=== PATIENT | male | born 1985 | race Caucasian/White ===

== ENCOUNTER 2019-09-01 19:00 | Emergency (ER) | payer OTHER ==
--- NOTE | 2019-09-01 19:29 | ERPHSYRPT ---
- History of Present Illness Time Seen by Provider: 09/01/19 19:20 Source: patient, family Exam Limitations: no limitations Patient Subjective Stated Complaint: pt states he has been sick for three days, states he is coughing , wheezing, running fever, vomiting and diarrhea for 2 days Triage Nursing Assessment: pt is alert and oriented, staes he has pain all over body rates pain as 3/10 Physician History: 33 y/o white male presents with 3 day h/o coughing wheezing, vomiting and diarrhea(both have subsided) and fever. last dose of tylenol was at 1530 today. he took ibuprofen this am. pt states he is "allergic" to saline solution and refuses. his "allergy" is it makes him violent. he is not allergic to tylenol. he has a mild cough today. Timing/Duration: day(s) (3) Fever Severity: moderate Fever Therapy [employer]: Ibuprofen, Acetaminophen Associated Symptoms: cough, headache, muscle aches, No abdominal pain, No chest pain, No nausea/vomiting Allergies/Adverse Reactions: acetaminophen [From Vicodin] Allergy (Verified 09/01/19 19:23) hydrocodone [From Vicodin] Allergy (Verified 09/01/19 19:23) sodium chloride for inhalation [From Saline] Allergy (Verified 09/01/19 19:23) Home Medications: Omeprazole 20 mg PO DAILY 09/01/19 [History] - Review of Systems Constitutional: Fever Eyes: No Symptoms Ears, Nose, & Throat: No Symptoms Respiratory: Cough (mild) Cardiac: No Symptoms Abdominal/Gastrointestinal: No Symptoms Genitourinary Symptoms: No Symptoms Musculoskeletal: Arthralgias, Myalgias Skin: No Symptoms Neurological: No Symptoms Psychological: No Symptoms Endocrine: No Symptoms Hematologic/Lymphatic: No Symptoms Immunological/Allergic: No Symptoms All Other Systems: Reviewed and Negative - Past Medical History Pertinent Past Medical History: No Neurological History: No Pertinent History ENT History: No Pertinent History Cardiac History: No Pertinent History Respiratory History: No Pertinent History Endocrine Medical History: No Pertinent History Musculoskeletal History: No Pertinent History GI Medical History: No Pertinent History History: No Pertinent History Psycho-Social History: No Pertinent History Male Reproductive Disorders: No Pertinent History - Past Surgical History Past Surgical History: No Neuro Surgical History: No Pertinent History Cardiac: No Pertinent History Respiratory: No Pertinent History Gastrointestinal: No Pertinent History Genitourinary: No Pertinent History Musculoskeletal: No Pertinent History Male Surgical History: No Pertinent History - Social History Smoking Status: Never smoker Exposure to second hand smoke: No Drug Use: none Patient Lives Alone: No - Nursing Vital Signs Nursing Vital Signs: Initial Vital Signs Temperature 100.3 F 09/01/19 19:13 Pulse Rate 100 H 09/01/19 19:13 Respiratory Rate 16 09/01/19 19:13 Blood Pressure 124/83 09/01/19 19:13 O2 Sat by Pulse Oximetry 98 09/01/19 19:13 Pain Scale Pain Intensity 2 - Physical Exam General Appearance: no apparent distress, alert, anxiety Eye Exam: PERRL/EOMI, eyes nml inspection ENT Exam: normal ENT inspection, TMs normal, pharynx normal Neck Exam: normal inspection, non-tender, supple, full range of motion, trachea midline Respiratory Exam: normal breath sounds, lungs clear, no respiratory distress, no accessory muscle use, decreased breath sounds, No chest non-tender, No respiratory distress Cardiovascular/Chest Exam: normal heart sounds, regular rate/rhythm, normal peripheral pulses, No murmur Gastrointestinal/Abdominal Exam: soft, non tender, no distention, no mass, no guarding, no ecchymosis Rectal Exam: not done Extremity Exam: non-tender, normal range of motion, normal inspection Neurologic Exam: alert, oriented x 3, cooperative, hat trimmer II-XII nml as tested Skin Exam: normal color, warm, dry Lymphatic: No adenopathy SpO2 Interpretation: normal SpO2: 98 O2 Delivery: Room Air Ordered Tests: Active Orders 24 hr Category Date Time Status Hide Trimmer STAT Care 09/01/19 19:36 Active Pulse Oximetry (ED) STAT Care 09/01/19 19:35 Active CHEST 1 VIEW (PORTABLE) Stat Exams 09/01/19 19:35 Taken BLOOD CULTURE Stat Lab 09/01/19 20:05 Received CBC W DIFF Stat Lab 09/01/19 20:05 Completed CMP Stat Lab 09/01/19 20:05 Completed Lactic Acid Stat Lab 09/01/19 19:35 Completed [place] Screen Stat Lab 09/01/19 20:10 Completed UA W/RFX UR CULTURE Stat Lab 09/01/19 Completed Medication Summary Discontinued Medications Generic Name Dose Route Start Last Admin Trade Name Freq PRN Reason Stop Dose Admin Acetaminophen 650 mg 09/01/19 19:39 09/01/19 19:47 Tylenol 325 Mg PO 09/01/19 19:40 650 mg STAT STA Administration Acetaminophen Confirm 09/01/19 19:42 Tylenol 325 Mg Administered 09/01/19 19:43 Dose 650 mg .ROUTE .STK-MED ONE Ibuprofen 600 mg 09/01/19 19:40 09/01/19 19:47 Motrin 600 Mg PO 09/01/19 19:41 600 mg STAT ONE Administration Ibuprofen Confirm 09/01/19 19:42 Motrin 600 Mg Administered 09/01/19 19:43 Dose 600 mg .ROUTE .STK-MED ONE Oseltamivir Phosphate 75 mg 09/01/19 21:28 Tamiflu 75mg Capsule PO 09/01/19 21:29 STAT ONE Lab/Rad Data: Laboratory Result Diagrams 09/01/19 20:05 09/01/19 20:05 Laboratory Results 09/01/19 09/01/19 09/01/19 Range/Units Unknown 20:10 20:05 WBC (4.0-10.5) K/mm3 RBC (4.1-5.6) M/mm3 Hgb (12.5-18.0) gm/dl Hct (42-50) % MCV (78-100) fl MCH (26-32) pg MCHC (32-36) g/dl RDW (11.5-14.0) % Plt Count (150-450) K/mm3 MPV (6-9.5) fl Gran % (36.0-66.0) % Eos # (Auto) (0-0.5) Absolute Lymphs (auto) (1.0-4.6) Absolute Monos (auto) (0.0-1.3) Lymphocytes % (24.0-44.0) % Monocytes % (0.0-12.0) % Eosinophils % (0.00-5.0) % Basophils % (0.0-0.4) % Absolute Granulocytes (1.4-6.9) Basophils # (0-0.4) Sodium (137-145) mmol/L Potassium (3.5-5.1) mmol/L Chloride (98-107) mmol/L Carbon Dioxide (22-30) mmol/L Anion Gap (5-15) MEQ/L BUN (9-20) mg/dL Creatinine (0.66-1.25) mg/dL Estimated GFR ML/MIN Glucose (74-106) mg/dL Lactic Acid (0.4-2.0) Calcium (8.4-10.2) mg/dL Total Bilirubin (0.2-1.3) mg/dL AST (17-59) U/L ALT (0-50) U/L Alkaline Phosphatase (38-126) U/L Serum Total Protein (6.3-8.2) g/dL Albumin (3.5-5.0) g/dL Urine Color YELLOW (YELLOW) Urine Appearance CLEAR (CLEAR) Urine pH 6.0 (5-6) Ur Specific [place] 1.011 (1.005-1.025) Urine Protein NEGATIVE (Negative) Urine Ketones NEGATIVE (NEGATIVE) Urine Blood SMALL (0-5) Adrian/ul Urine Nitrite NEGATIVE (NEGATIVE) Urine Bilirubin NEGATIVE (NEGATIVE) Urine Urobilinogen 2 (0-1) mg/dL Ur Leukocyte Esterase NEGATIVE (NEGATIVE) Urine WBC (Auto) NONE (0-5) /HPF Urine RBC (Auto) 3-5 (0-2) /HPF U Epithel Cells (Auto) NONE (FEW) /HPF Urine Bacteria (Auto) NONE (NEGATIVE) /HPF Urine Mucus (Auto) SLIGHT (NEGATIVE) /HPF Urine Culture Reflexed NO (NO) Urine Glucose NEGATIVE (NEGATIVE) mg/dL Monoscreen NEGATIVE (Negative) Influenza Type A Ag POSITIVE (NEGATIVE) Influenza Type B Ag NEGATIVE (NEGATIVE) RSV (PCR) NEGATIVE (Negative) Group A Strep Antibody NEGATIVE (NEGATIVE) 09/01/19 09/01/19 09/01/19 Range/Units 20:05 20:05 19:35 WBC 3.4 L (4.0-10.5) K/mm3 RBC 4.20 (4.1-5.6) M/mm3 Hgb 13.4 (12.5-18.0) gm/dl Hct 40.8 L (42-50) % MCV 97.1 (78-100) fl MCH 31.9 (26-32) pg MCHC 32.8 (32-36) g/dl RDW 12.9 (11.5-14.0) % Plt Count 201 (150-450) K/mm3 MPV 10.0 H (6-9.5) fl Gran % 68.2 H (36.0-66.0) % Eos # (Auto) 0.08 (0-0.5) Absolute Lymphs (auto) 0.64 L (1.0-4.6) Absolute Monos (auto) 0.35 (0.0-1.3) Lymphocytes % 18.7 L (24.0-44.0) % Monocytes % 10.2 (0.0-12.0) % Eosinophils % 2.3 (0.00-5.0) % Basophils % 0.6 (0.0-0.4) % Absolute Granulocytes 2.33 (1.4-6.9) Basophils # 0.02 (0-0.4) Sodium 139 (137-145) mmol/L Potassium 3.8 (3.5-5.1) mmol/L Chloride 104 (98-107) mmol/L Carbon Dioxide 30 (22-30) mmol/L Anion Gap 9.5 (5-15) MEQ/L BUN 7 L (9-20) mg/dL Creatinine 0.83 (0.66-1.25) mg/dL Estimated GFR > 60.0 ML/MIN Glucose 101 (74-106) mg/dL Lactic Acid 1.2 (0.4-2.0) Calcium 8.7 (8.4-10.2) mg/dL Total Bilirubin 0.70 (0.2-1.3) mg/dL AST 90 H (17-59) U/L ALT 98 H (0-50) U/L Alkaline Phosphatase 63 (38-126) U/L Serum Total Protein 7.0 (6.3-8.2) g/dL Albumin 4.0 (3.5-5.0) g/dL Urine Color (YELLOW) Urine Appearance (CLEAR) Urine pH (5-6) Ur Specific [place] (1.005-1.025) Urine Protein (Negative) Urine Ketones (NEGATIVE) Urine Blood (0-5) Adrian/ul Urine Nitrite (NEGATIVE) Urine Bilirubin (NEGATIVE) Urine Urobilinogen (0-1) mg/dL Ur Leukocyte Esterase (NEGATIVE) Urine WBC (Auto) (0-5) /HPF Urine RBC (Auto) (0-2) /HPF U Epithel Cells (Auto) (FEW) /HPF Urine Bacteria (Auto) (NEGATIVE) /HPF Urine Mucus (Auto) (NEGATIVE) /HPF Urine Culture Reflexed (NO) Urine Glucose (NEGATIVE) mg/dL Monoscreen (Negative) Influenza Type A Ag (NEGATIVE) Influenza Type B Ag (NEGATIVE) RSV (PCR) (Negative) Group A Strep Antibody (NEGATIVE) - Progress Progress: improved, re-examined Progress Note: 09/01/19 21:30 cxr-no acute process. Counseled pt/family regarding: lab results, diagnosis, need for follow-up, rad results - Departure Departure Disposition: Home Clinical Impression: Influenza A Condition: Stable Critical Care Time: No Referrals: PARIS RAM MD [Primary Care Provider] - Instructions: Flu, Adult (DC), Fever, Adult (DC) Additional Instructions: drink plenty of fluids. alternate tylenol and ibuprofen every 4 hours. follow up with primary doctor for persistent symptoms Prescriptions: Oseltamivir 75 mg [Tamiflu 75MG Capsule] 75 mg PO BID #10 cap
[2019-09-01] MEDS ORDERED: TYLENOL 325 MG PO STA (19:39)
[2019-09-01] MEDS ORDERED: MOTRIN 600 MG PO ONE (19:40)
[2019-09-01] MEDS ORDERED: TYLENOL 325 MG ONE (19:42)
[2019-09-01] MEDS ORDERED: MOTRIN 600 MG ONE (19:42)
[2019-09-01 20:20] LABS: Absolute Neutrophil Ct (ANC) 2.33 (1.4-6.9); BASOPHIL % 0.6 % (0.0-0.4); Basophil (Absolute #) 0.02 (0-0.4); Eosinophil % 2.3 % (0.00-5.0); Eosinophil (Absolute #) 0.08 (0-0.5); Hematocrit 40.8 % (42-50); Hemoglobin 13.4 gm/dl (12.5-18.0); Lymphocyte (Absolute #) 0.64 (1.0-4.6); Lymphocytes % 18.7 % (24.0-44.0); Mean Cell Volume 97.1 fl (78-100); Mean Corpuscular Hemoglobin 31.9 pg (26-32); Mean Corpuscular Hgb Concent. 32.8 g/dl (32-36); Monocyte (Absolute #) 0.35 (0.0-1.3); Monocytes % 10.2 % (0.0-12.0); Neutrophil % 68.2 % (36.0-66.0); Platelet Count 201 K/mm3 (150-450); Red Cell Distribution Width 12.9 % (11.5-14.0); White Blood Count 3.4 K/mm3 (4.0-10.5)
[2019-09-01 20:31] LABS: ALKALINE PHOSPHATASE 63 U/L (38-126); ANION GAP 9.5 MEQ/L (5-15); BLOOD UREA NITROGEN 7 mg/dL (9-20); CHLORIDE 104 mmol/L (98-107); Calcium 8.7 mg/dL (8.4-10.2); Carbon Dioxide 30 mmol/L (22-30); Creatinine 1 0.83 mg/dL (0.66-1.25); Glucose 101 mg/dL (74-106); Potassium 3.8 mmol/L (3.5-5.1); SGOT/AST 90 U/L (17-59); SGPT/ALT 98 U/L (0-50); SODIUM 139 mmol/L (137-145)
[2019-09-01 20:43] LABS: Appearance CLEAR (CLEAR); Bilirubin NEGATIVE (NEGATIVE); Blood SMALL Ery/ul (0-5); Glucose NEGATIVE (NEGATIVE); Ketones NEGATIVE (NEGATIVE); Leukocyte Esterase NEGATIVE (NEGATIVE); Mucus SLIGHT /HPF (NEGATIVE); Nitrite NEGATIVE (NEGATIVE); Protein,Urine Dip NEGATIVE (Negative); Specific Gravity 1.011 (1.005-1.025); Urobilinogen 2 mg/dL (0-1)
[2019-09-01 20:50] LABS: Group A Strep NEGATIVE (NEGATIVE)
[2019-09-01 20:51] LABS: INFLUENZA A POSITIVE (NEGATIVE); INFLUENZA B NEGATIVE (NEGATIVE)
[2019-09-01 21:21] LABS: RESPIRATORY SYNCTIAL VIRUS NEGATIVE (Negative)
[2019-09-01 21:24] VITALS: BP 110/70; PULSE 60
[2019-09-01] MEDS ORDERED: Tamiflu 75MG Capsule PO ONE ×2 (21:28→21:30)
[2019-09-01 21:32] VITALS: O2SAT 98
[2019-09-01] MEDS ORDERED: Tessalon Perles 100 MG PO ONE (21:37)
--- NOTE | 2019-09-02 08:57 | XRAY ---
Indication: Fever. Comparison: None Portable apical lordotic chest demonstrates normal heart and lungs. Bony thorax intact.
== END 2019-09-01 21:55 | disposition home or self-care (01) ==
LOC: ED 19:00
DX: J10.1 Influenza due to other identified influenza virus with other respiratory manifestations (principal)
CPT/HCPCS: 36415; 71045; 80053; 81001; 83605; 85025; 86308; 87040; 87631; 87651; 93041; 94760; 99284; A9270-GY

== ENCOUNTER 2021-02-20 22:00 | Emergency (ER) | payer OTHER ==
[2021-02-20] MEDS ORDERED: TORAdol 30 mg Injection ONE (22:44)
[2021-02-20] MEDS ORDERED: Norflex 60 MG/2 ML ONE (22:44)
[2021-02-20] MEDS: Norflex 60 MG/2 ML IM ONE (22:45)
[2021-02-20] MEDS: TORAdol 30 mg Injection IM ONE ×2 (22:46)
[2021-02-20 23:14] VITALS: BP 125/95; PULSE 58; O2SAT 96
--- NOTE | 2021-02-20 23:21 | ERPHSYRPT ---
- History of Present Illness Time Seen by Provider: 02/20/21 22:12 Source: patient Exam Limitations: no limitations Patient Subjective Stated Complaint: last 2.5 to 3 weeks has been having pain in lower back that radiates to L leg. Back pain is chronic from injuries in the past but the radiating pain to L leg is new. was taking ketoralac and naproxen at home with no relief Triage Nursing Assessment: pain in left lower back radiating to L leg currently 3/10 when sitting/dangling on side of bed. pain varies at different times with no consisitency on activity, says can be anywhere from 6/10 to 10/10. pain radiates from left lower back down to left leg and makes left foot go numb. Physician History: 35-year old male presented in the ER with chief complaint of left lower back pain with radiation to left posterior thigh for the last 3 weeks with progressive worsening with activity and better with resting. Reports occasional numbness and tingling on the lateral side of the thigh but no weakness or numbness in the lower leg/foot. Denies any new fall or trauma but does report having back injury a few years ago. Denies any loss of bowel or bladder control or perineal numbness. Patient reports having similar symptoms multiple times in the past but could not get MRI done as his insurance requires physical therapy before approval of MRI and he is too busy to go to physical therapy. Timing/Duration: week(s) (3), intermittent, gradual onset, worse Quality: sharp Back Pain Location: paraspinous muscles Back Pain Radiation: buttocks, upper legs Severity of Pain-Max: moderate Severity of Pain-Current: moderate Modifying Factors: Improves With: immobilization, rest. Worsens With: movement Associated Symptoms: lower back pain, muscle spasms, No urinary incontinence, No loss of bowel control, No nausea, No problems urinating, No light-headedness, No dizziness, No numbness in legs/feet, No weakness, No sensory/motor loss, No tingling in legs/feet Previous symptoms: same symptoms as today Allergies/Adverse Reactions: acetaminophen [From Vicodin] Allergy (Verified 02/20/21 22:08) hydrocodone [From Vicodin] Allergy (Verified 02/20/21 22:08) Home Medications: Omeprazole 20 mg PO DAILY 09/01/19 [History] Atorvastatin Calcium 20 mg PO DAILY 02/20/21 [History] Immunizations Up to Date: Yes Travel Risk - International Travel Have you traveled outside of the country in past 3 weeks: No - Coronavirus Screening Are you exhibiting any of the following symptoms?: No Close contact with a COVID-19 positive Pt in past 14-21 Days: No - Vaccine Status Have you recieved a Covid-19 vaccination: No - Review of Systems Constitutional: No Symptoms Eyes: No Symptoms Ears, Nose, & Throat: No Symptoms Respiratory: No Symptoms Cardiac: No Symptoms Abdominal/Gastrointestinal: No Symptoms, Appetite Changes Musculoskeletal: Back Pain Skin: No Symptoms Neurological: No Symptoms Psychological: No Symptoms Endocrine: No Symptoms Hematologic/Lymphatic: No Symptoms Immunological/Allergic: No Symptoms - Past Medical History Pertinent Past Medical History: No Neurological History: No Pertinent History ENT History: No Pertinent History Cardiac History: High Cholesterol Respiratory History: No Pertinent History Endocrine Medical History: No Pertinent History Musculoskeletal History: No Pertinent History GI Medical History: GERD History: No Pertinent History Psycho-Social History: No Pertinent History Male Reproductive Disorders: No Pertinent History - Past Surgical History Past Surgical History: No Neuro Surgical History: No Pertinent History Cardiac: No Pertinent History Respiratory: No Pertinent History Gastrointestinal: No Pertinent History Genitourinary: No Pertinent History Musculoskeletal: No Pertinent History Male Surgical History: No Pertinent History - Social History Smoking Status: Never smoker Exposure to second hand smoke: No Drug Use: none Patient Lives Alone: Yes - Nursing Vital Signs Nursing Vital Signs: Initial Vital Signs Temperature 98.1 F 02/20/21 22:01 Pulse Rate 79 02/20/21 22:01 Respiratory Rate 18 02/20/21 22:01 Blood Pressure 148/83 02/20/21 22:01 O2 Sat by Pulse Oximetry 98 02/20/21 22:01 Pain Scale Pain Intensity [Left] 3 Pain Intensity 3 - Physical Exam General Appearance: no apparent distress Eye Exam: eyes nml inspection Ears, Nose, Throat Exam: normal ENT inspection, pharynx normal Neck Exam: normal inspection, supple, full range of motion Respiratory Exam: normal breath sounds, lungs clear Cardiovascular Exam: regular rate/rhythm, normal heart sounds Gastrointestinal Exam: soft, normal bowel sounds, No tenderness Back Exam: normal inspection, normal range of motion, muscle spasm (Left sacroiliac area tenderness), No CVA tenderness, No vertebral tenderness Extremity Exam: normal inspection, normal range of motion, pelvis stable, other (Positive straight leg raising test at 45 degrees on the left) Neurologic Exam: alert, oriented x 3, cooperative Skin Exam: normal color SpO2 Interpretation: normal SpO2: 96 O2 Delivery: Room Air Ordered Tests: Medication Summary Discontinued Medications Generic Name Dose Route Start Last Admin Trade Name Suly PRN Reason Stop Dose Admin Ketorolac Tromethamine 30 mg 02/20/21 22:43 02/20/21 22:46 Toradol 30 Mg Injection IM 02/20/21 22:44 30 mg STAT ONE Administration Ketorolac Tromethamine 30 mg 02/20/21 22:43 02/20/21 22:46 Toradol 30 Mg Injection IM 02/20/21 22:44 Not Given STAT ONE Ketorolac Tromethamine Confirm 02/20/21 22:44 Toradol 30 Mg Injection Administered 02/20/21 22:45 Dose 30 mg .ROUTE .STK-MED ONE Orphenadrine Citrate 60 mg 02/20/21 22:44 02/20/21 22:45 Norflex 60 Mg/2 Ml IM 02/20/21 22:45 60 mg STAT ONE Administration Orphenadrine Citrate Confirm 02/20/21 22:44 Norflex 60 Mg/2 Ml Administered 02/20/21 22:45 Dose 60 mg .ROUTE .STK-MED ONE - Progress Progress: improved Progress Note: 02/20/21 23:19 Given Toradol and Norflex, reevaluation feeling much better. Without any limitation in the ER. Negative neuro exam in lower extremities for cauda equina. I do agree patient needs further evaluation with MRI and have advised him to follow-up with his primary care. Discussed signs symptoms of worsening needing return to ER which he seems understanding. Patient is being discharged on NSAIDs and muscle relaxant. Discussed signs symptoms of worsening needing return to ER which he seems understanding. Counseled pt/family regarding: diagnosis, need for follow-up - Departure Departure Disposition: Home Clinical Impression: Low back strain Qualifiers: Encounter type: initial encounter Qualified Code(s): S39.012A - Strain of muscle, fascia and tendon of lower back, initial encounter Condition: Stable Critical Care Time: No Referrals: PARIS RAM MD [Primary Care Provider] - Follow Up with PCP/3 days Instructions: Low Back Pain (DC), Sciatica (DC) Additional Instructions: Take pain medications as needed. Follow-up with your primary care physician for reevaluation and may need MRI for further evaluation of back pain. Return to ER for intractable low back pain, numbness tingling weakness of lower extremities, loss of bowel or bladder control or perineal numbness. Prescriptions: Diclofenac Sodium 75 mg PO BID PRN 10 Days #20 tablet. PRN Reason: Pain Tizanidine HCl 4 mg [Zanaflex 4 MG] 4 mg PO TID PRN 10 Days #21 tablet PRN Reason: Pain
== END 2021-02-20 23:35 | disposition home or self-care (01) ==
LOC: ED 22:00
DX: M54.5 Low back pain (principal); M79.605 Pain in left leg; M79.604 Pain in right leg
CPT/HCPCS: 96372; 99284; J1885; J2360

== ENCOUNTER 2021-11-23 12:46 | Emergency (ER) | payer OTHER ==
[2021-11-23 12:58] VITALS: BP 149/90; PULSE 95; O2SAT 97
--- NOTE | 2021-11-23 13:16 | ERPHSYRPT ---
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 HAS 1 INCH LACERATION TO RIGHT THUMB NO BLEEDING NOTED Physician History: Patient 36-year-old male presents to our ED with a laceration to the dorsal aspect of the right thumb. 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 No other injuries reported. Injury occurred just prior to arrival. Tetanus up-to-date. No active bleeding. Pain described as ache that is localized. No radiation. There was no blunt trauma. Patient able to move his thumb in full extension and flexion. There is no tendon compromise. Extremity and thumb are both neurovascular intact distally. Patient voices no other complaints concerns at this time Timing/Duration: today Severity: mild Modifying Factors: Improves With: movement Associated Symptoms: denies symptoms Allergies/Adverse Reactions: hydrocodone [From Vicodin] Allergy (Verified 02/20/21 22:08) Home Medications: Omeprazole 20 mg PO DAILY 09/01/19 [History] Atorvastatin Calcium 20 mg PO DAILY 02/20/21 [History] Hx Tetanus, Diphtheria Vaccination/Date Given: Yes (2 YEARS AGO) Hx Influenza Vaccination/Date Given: No Hx Pneumococcal Vaccination/Date Given: No Immunizations Up to Date: Yes Travel Risk - International Travel Have you traveled outside of the country in past 3 weeks: No - Coronavirus Screening Are you exhibiting any of the following symptoms?: No - Vaccine Status Have you recieved a Covid-19 vaccination: No - Review of Systems Constitutional: No Symptoms, No Fever, No Chills Eyes: No Symptoms Ears, Nose, & Throat: No Symptoms Respiratory: No Symptoms, No Cough, No Dyspnea Cardiac: No Symptoms, No Chest Pain, No Edema, No Syncope Abdominal/Gastrointestinal: No Symptoms, No Abdominal Pain, No Nausea, No Vomiting, No Diarrhea Genitourinary Symptoms: No Symptoms, No Dysuria Musculoskeletal: No Symptoms, No Back Pain, No Neck Pain Skin: No Symptoms, No Rash Neurological: No Symptoms, No Dizziness, No Focal Weakness, No Sensory Changes Psychological: No Symptoms Endocrine: No Symptoms Hematologic/Lymphatic: No Symptoms Immunological/Allergic: No Symptoms All Other Systems: Reviewed and Negative - Past Medical History Pertinent Past Medical History: No Neurological History: No Pertinent History ENT History: No Pertinent History Cardiac History: High Cholesterol, Hypertension Respiratory History: No Pertinent History Endocrine Medical History: No Pertinent History Musculoskeletal History: No Pertinent History GI Medical History: GERD History: No Pertinent History Psycho-Social History: No Pertinent History Male Reproductive Disorders: No Pertinent History - Past Surgical History Past Surgical History: No Neuro Surgical History: No Pertinent History Cardiac: No Pertinent History Respiratory: No Pertinent History Gastrointestinal: No Pertinent History Genitourinary: No Pertinent History Musculoskeletal: No Pertinent History Male Surgical History: No Pertinent History - Social History Smoking Status: Never smoker Exposure to second hand smoke: No Drug Use: none Patient Lives Alone: Yes - Nursing Vital Signs Nursing Vital Signs: Initial Vital Signs Temperature 97.2 F 11/23/21 12:48 Pulse Rate 95 H 11/23/21 12:48 Respiratory Rate 18 11/23/21 12:48 Blood Pressure 149/90 11/23/21 12:48 O2 Sat by Pulse Oximetry 97 11/23/21 12:48 Pain Scale Pain Intensity 0 - Physical Exam General Appearance: no apparent distress, alert Eye Exam: PERRL/EOMI, eyes nml inspection Ears, Nose, Throat Exam: normal ENT inspection, pharynx normal, moist mucous membranes Neck Exam: normal inspection, non-tender, supple, full range of motion Respiratory Exam: lungs clear, airway intact, No respiratory distress, No accessory muscle use Cardiovascular Exam: regular rate/rhythm, normal heart sounds, normal peripheral pulses Gastrointestinal/Abdomen Exam: soft, normal bowel sounds, No tenderness, No mass Back Exam: normal inspection, normal range of motion, No CVA tenderness, No vertebral tenderness Extremity Exam: normal inspection, normal range of motion, pelvis stable, other (3 cm laceration dorsal aspect right thumb. Tendon function intact. Extremity neurovascular intact distally. Thumb is neurovascular intact distally. Compartments are soft. 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, normal mood/affect, sensation nml, No motor deficits Skin Exam: normal color, warm, dry, No rash Lymphatic Exam: No adenopathy SpO2 Interpretation: normal SpO2: 97 O2 Delivery: Room Air Procedures - Laceration/Wound Repair Dorsal Finger Time of Procedure: 13:15 Wound Location: Right Wound Length (cm): 3 Wound's Depth, Shape: superficial Wound Explored: clean Irrigated: Yes (saline) Hibiclens Prep: No Anesthesia: 2% Lidocaine Volume Anesthetic (ccs): 3 Wound Debrided: No debridement indicated Wound Repaired With: sutures Suture Size/Type: 5-0, vicryl Number of Sutures: 5 Layer Closure?: No Sterile Dressing Applied?: Yes Splint Applied?: No - Course Nursing assessment & vital signs reviewed: Yes - Progress Progress: improved Progress Note: 36-year-old male presents to ED for evaluation and treatment of laceration to right thumb. Wound was irrigated. Tetanus up-to-date. 5 simple interrupted sutures placed using 5-0 Vicryl. Excellent anesthesia obtained using 2% lidocaine. Excellent hemostasis. Wound successfully closed. Patient neurovascular tact distally post procedure. Prescription for Keflex was forwarded to patient's pharmacy. Pain well controlled at this time. No indication for further work-up. No indication for imaging studies. Will discharge home. Patient agrees to follow-up with his primary care doctor within 48 hours for evaluation. Portions of this note were created with voice recognition technology. There may be grammatical, spelling, punctuation or sound alike errors 11/23/21 13:17 Counseled pt/family regarding: diagnosis, need for follow-up - Departure Departure Disposition: Home Clinical Impression: Thumb laceration Condition: Stable Critical Care Time: No Referrals: PARIS RAM MD [Primary Care Provider] - Follow up/PCP as directed Additional Instructions: Discharge/Care Plan KIARRA KOHLI was seen on 11/23/21 in the Emergency Room. The patient was counseled regarding Diagnosis,Lab results, Imaging studies, need for follow up and when to return to the Emergency Room. Prescriptions given: Discharge Note I have spoken with the patient and/or caregivers. I have explained the patient's condition, diagnosis and treatment plan based on the information available to me at this time. I have answered the patient's and/or caregiver's questions and addressed any concerns. The patient and/or caregivers have as good understanding of the patient's diagnosis, condition and treatment plan as can be expected at this point. The vital signs have been stable. The patient's condition is stable and appropriate for discharge from the emergency department. The patient will pursue further outpatient evaluation with the primary care physician or other designated or consulting physician as outlined in the discharge instructions. The patient and/or caregivers are agreeable to this plan of care and follow-up instructions have been explained in detail. The patient and/or caregivers have received these instruction. The patient/and or caregivers are aware that any significant change in condition or worsening of symptoms should prompt an immediate return to this or the closest emergency department or call 911. Prescriptions: Cephalexin Mh 500 mg [Keflex 500 mg] 500 mg PO TID #21 cap
== END 2021-11-23 13:28 | disposition home or self-care (01) ==
LOC: ED 12:46
DX: S61.011A Laceration without foreign body of right thumb without damage to nail, initial encounter (principal); W45.8XXA Other foreign body or object entering through skin, initial encounter; Y93.H3 Activity, building and construction; E78.5 Hyperlipidemia, unspecified; I10 Essential (primary) hypertension; K21.9 Gastro-esophageal reflux disease without esophagitis
CPT/HCPCS: 12002; 99283

== ENCOUNTER 2024-05-07 02:41 | Emergency (ER) | payer OTHER ==
[2024-05-07 02:47] VITALS: RESP 18; TEMP 98.4
--- NOTE | 2024-05-07 03:28 | ERPHSYRPT ---
- History of Present Illness Time Seen by Provider: 05/07/24 03:00 Source: patient Exam Limitations: no limitations Patient Subjective Stated Complaint: left foot pain Triage Nursing Assessment: Pt ambulated into ER using crutches without diff. Pt alert and oriented x4. Spouse at bedside. Pt c/o left foot/ankle pain x4 days and it just got significantly worse since midnight tonight. Pt denies any injury or fall to the foot. Pedal pulse present to left foot. Notable non pitting swelling noted to top of left foot. Pt c/o pain up the back of his calf. Physician History: 38-year-old male presents to emergency department for evaluation of pain to the left foot heel and calf area. Pain associated with swelling. No trauma no fever. No nausea vomiting or diaphoresis. Pain described as an ache that has been present for approximately 4 days. Pain associated with swelling of the foot. Symptoms are moderate in intensity. Patient declined pain medication. No associated shortness of breath. Significant other at bedside. They voiced no other complaints or concerns at this time. Portions of this note were created with voice recognition technology. There may be grammatical, spelling, punctuation or sound alike errors Timing/Duration: today, day(s) (4 days) Severity: moderate Modifying Factors: Improves With: nothing Associated Symptoms: denies symptoms Allergies/Adverse Reactions: hydrocodone [From Vicodin] Allergy (Verified 05/07/24 02:55) Home Medications: Omeprazole 20 mg PO DAILY 09/01/19 [History] Amlodipine Besylate 5 mg [Norvasc 5 mg] 1 tab PO DAILY 05/07/24 [History] Chlorthalidone [Thalitone] 1 tab PO DAILY 05/07/24 [History] Metoprolol Succinate 50 mg [Toprol Xl 50 MG] 1 tab PO DAILY 05/07/24 [History] Semaglutide [Ozempic] 1 mg SQ WEEKLY 05/07/24 [History] Spironolactone 12.5 mg PO DAILY 05/07/24 [History] Tadalafil [Cialis] 10 mg PO DAILY 05/07/24 [History] Testosterone Cypionate 200 mg IM DAILY 05/07/24 [History] Ubidecarenone [Co Q-10] 200 mg PO DAILY 05/07/24 [History] Hx Tetanus, Diphtheria Vaccination/Date Given: Yes Hx Influenza Vaccination/Date Given: No Hx Pneumococcal Vaccination/Date Given: No Travel Risk - International Travel Have you traveled outside of the country in past 3 weeks: No - Emerging Infectious Disease Are you exhibiting symptoms associated with any current EIDs: No - Review of Systems Constitutional: No Symptoms, No Fever, No Chills Eyes: No Symptoms Ears, Nose, & Throat: No Symptoms Respiratory: No Symptoms, No Cough, No Dyspnea Cardiac: No Symptoms, No Chest Pain, No Edema, No Syncope Abdominal/Gastrointestinal: No Symptoms, No Abdominal Pain, No Nausea, No Vomiting, No Diarrhea Genitourinary Symptoms: No Symptoms, No Dysuria Musculoskeletal: No Symptoms, No Back Pain, No Neck Pain Skin: No Symptoms, No Rash Neurological: No Symptoms, No Dizziness, No Focal Weakness, No Sensory Changes Psychological: No Symptoms Endocrine: No Symptoms Hematologic/Lymphatic: No Symptoms Immunological/Allergic: No Symptoms All Other Systems: Reviewed and Negative - Past Medical History Pertinent Past Medical History: Yes Neurological History: No Pertinent History ENT History: No Pertinent History Cardiac History: High Cholesterol, Hypertension Respiratory History: No Pertinent History Endocrine Medical History: No Pertinent History Musculoskeletal History: No Pertinent History GI Medical History: GERD History: No Pertinent History Psycho-Social History: No Pertinent History Male Reproductive Disorders: No Pertinent History - Past Surgical History Past Surgical History: No Neuro Surgical History: No Pertinent History Cardiac: No Pertinent History Respiratory: No Pertinent History Gastrointestinal: No Pertinent History Genitourinary: No Pertinent History Musculoskeletal: No Pertinent History Male Surgical History: No Pertinent History - Social History Smoking Status: Former smoker Exposure to second hand smoke: No Drug Use: none Patient Lives Alone: Yes - Social Determinants of Health Will the patient participate in the screening: Declined to provide - Nursing Vital Signs Nursing Vital Signs: Initial Vital Signs Temperature 98.4 F 05/07/24 02:46 Pulse Rate 94 H 05/07/24 02:46 Respiratory Rate 18 05/07/24 02:46 Blood Pressure 143/91 05/07/24 02:46 O2 Sat by Pulse Oximetry 98 05/07/24 02:46 Pain Scale Pain Intensity 4 - Physical Exam General Appearance: no apparent distress, alert Eye Exam: PERRL/EOMI, eyes nml inspection Ears, Nose, Throat Exam: normal ENT inspection, moist mucous membranes Neck Exam: normal inspection, full range of motion Respiratory Exam: normal breath sounds, lungs clear, No respiratory distress Cardiovascular Exam: regular rate/rhythm, normal peripheral pulses Gastrointestinal/Abdomen Exam: soft, normal bowel sounds, No tenderness, No mass Back Exam: normal inspection, normal range of motion, No CVA tenderness, No vertebral tenderness Extremity Exam: normal inspection, normal range of motion, pelvis stable, acrly's sign (Positive Homans' sign left lower extremity.) Neurologic Exam: alert, oriented x 3, cooperative, normal mood/affect, nml cerebellar function, nml station & gait, sensation nml, No motor deficits Skin Exam: normal color, warm, dry, No rash Lymphatic Exam: No adenopathy SpO2 Interpretation: normal SpO2: 98 O2 Delivery: Room Air - Course Nursing assessment & vital signs reviewed: Yes - Radiology Exams Foot X-ray Interpretation: Interpreted by me (No fracture or dislocation) Ankle X-ray Interpretation: Interpreted by me (No fracture or dislocation) Ordered Tests: Active Orders 24 hr Category Date Time Status ANKLE (3 VIEWS) Stat Exams 05/07/24 03:08 Taken FOOT (MINIMUM 3 VIEWS) Stat Exams 05/07/24 03:07 Taken VENOUS UNILAT/LIMITED EXTREMIT [US] Stat Exams 05/07/24 03:24 Taken Medication Summary Discontinued Medications Generic Name Dose Route Start Last Admin Trade Name Suly PRN Reason Stop Dose Admin Dexamethasone Sodium Phosphate 10 mg 05/07/24 05:16 Dexamethasone Sod Phosphate 10 Mg/Ml IM 05/07/24 05:17 STAT ONE Ketorolac Tromethamine 60 mg 05/07/24 05:17 Ketorolac Tromethamine 30 Mg/Ml Inj IM 05/07/24 05:18 STAT ONE - Progress Progress: improved Progress Note: 38-year-old male presents to emergency department for evaluation of left foot and calf pain. X-ray negative for fracture dislocation. Ultrasound negative for DVT. Patient reports that his father has a history of gout. Patient believes he may have gout as well. We administered a dose of Decadron and Toradol in our ED. A prescription for Toradol forwarded to patient's pharmacy. A referral to the orthopedic clinic provided as well. Patient will attend the orthopedic clinic tomorrow. Patient has his crutches from home. No indication for further workup at this time. Will discharge home. Patient agrees to follow-up as planned. at bedside. They voiced no other complaints or concerns at this time. 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 Portions of this note were created with voice recognition technology. There may be grammatical, spelling, punctuation or sound alike errors Complexity of problem addressed is moderate acute complicated. No critical care time. Complex of data reviewed and analyzed is moderate. Test ordered test reviewed results analyzed and correlated clinically with history and physical exam. Risk of complication and or risk of morbidity/mortality patient management is moderate. A prescription for Toradol forwarded to patient's pharmacy. Vital stable. Time spent to discharge patient is approximately 20 minutes. Plan of care established for shared decision making. No social determinants of health present to impede follow-up. 05/07/24 05:20 Counseled pt/family regarding: diagnosis, need for follow-up, rad results - Departure Departure Disposition: Home Clinical Impression: Foot pain Condition: Stable Critical Care Time: No Referrals: REINALDO AGUILAR NP [Primary Care Provider] - Follow up/PCP as directed Additional Instructions: Discharge/Care Plan KIARRA KOHLI was seen on 05/07/24 in the Emergency Room. The patient was counseled regarding Diagnosis,Lab results, Imaging studies, need for follow up and when to return to the Emergency Room. Prescriptions given: Discharge Note I have spoken with the patient and/or caregivers. I have explained the patient's condition, diagnosis and treatment plan based on the information available to me at this time. I have answered the patient's and/or caregiver's questions and addressed any concerns. The patient and/or caregivers have as good understanding of the patient's diagnosis, condition and treatment plan as can be expected at this point. The vital signs have been stable. The patient's condition is stable and appropriate for discharge from the emergency department. The patient will pursue further outpatient evaluation with the primary care physician or other designated or consulting physician as outlined in the discharge instructions. The patient and/or caregivers are agreeable to this plan of care and follow-up instructions have been explained in detail. The patient and/or caregivers have received these instruction. The patient/and or caregivers are aware that any significant change in condition or worsening of symptoms should prompt an immediate return to this or the closest emergency department or call 911. Prescriptions: Ketorolac Trometh 10 mg Tab [TORAdol 10 MG TABLET] 10 mg PO TID 5 Days #15 tablet Outpatient Orders: Ortho Referral Time Frame: 1 Day, Facility: [facility], Location: ORTHO CLINIC
[2024-05-07 05:18] VITALS: BP 118/68; PULSE 69
[2024-05-07 05:19] VITALS: O2SAT 98
[2024-05-07] MEDS ORDERED: TORAdol 30 mg Injection ONE (05:19)
[2024-05-07] MEDS ORDERED: DECADRON 10MG INJ. ONE (05:20)
[2024-05-07] MEDS: DECADRON 10MG INJ. IM ONE (05:30)
[2024-05-07] MEDS: TORAdol 30 mg Injection IM ONE (05:30)
--- NOTE | 2024-05-07 09:03 | XRAY ---
Indication: Pain. Comparison: None 3 view left ankle obtained. No bony, articular, or soft tissue abnormalities.
--- NOTE | 2024-05-07 09:04 | XRAY ---
Indication: Pain. Comparison: None 3 nonweightbearing views left foot obtained. No bony, articular, or soft tissue abnormalities.
--- NOTE | 2024-05-07 09:05 | XRAY ---
Indication: Pain. DVT. Two-dimensional sonogram and color Doppler imaging major venous vessels left leg performed. Comparison: None No thrombus seen in the examined deep venous vessels left leg including greater saphenous vein. Veins demonstrate normal compressibility. Venous waveforms are normal with and without augmentation. Impression: Left leg negative for DVT. Comment: Preliminary report was given.
== END 2024-05-07 05:55 | disposition home or self-care (01) ==
LOC: ED 02:41
DX: M79.672 Pain in left foot (principal); M79.662 Pain in left lower leg; E78.5 Hyperlipidemia, unspecified; I10 Essential (primary) hypertension; Z79.85 Long-term (current) use of injectable non-insulin antidiabetic drugs; Z79.899 Other long term (current) drug therapy
CPT/HCPCS: 73610; 73630; 93971; 96372; 99283; J1100; J1885

== ENCOUNTER 2024-06-07 18:21 | Emergency (ER) | payer OTHER ==
[2024-06-07] MEDS ORDERED: TORAdol 30 mg Injection ONE (18:38)
--- NOTE | 2024-06-07 18:40 | ERPHSYRPT ---
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 Patient had a same type of symptoms 1 month ago and at that time he was presumptively diagnosed with gout. He was given anti-inflammatory injection and it did help him. He started having a same type of symptoms today on the side of the great toe on the left foot and which is very tender to touch he feels like a needle and pins poking him. He denies any other symptoms. Patient is asking that if he can stay on some medication which can prevent him all he can take the some of the medicine which can stop the symptoms when gout attack comes. I advised him that we will prescribe some medication for that. Occurred: this morning Severity of Pain-Max: moderate Severity of Pain-Current: moderate Lower Extremities Pain: 1st toe: left Modifying Factors: Improves With: nothing Associated Symptoms: none Allergies/Adverse Reactions: hydrocodone [From Vicodin] Allergy (Verified 06/07/24 18:26) Home Medications: Metoprolol Succinate 50 mg [Toprol Xl 50 MG] 1 tab PO DAILY 05/07/24 [History] Semaglutide [Ozempic] 1 mg SQ WEEKLY 05/07/24 [History] Testosterone Cypionate 200 mg IM DAILY 05/07/24 [History] tadalafiL [Cialis] 10 mg PO DAILY 05/07/24 [History] lisinopriL [Lisinopril] 40 mg PO DAILY 06/07/24 [History] Hx Tetanus, Diphtheria Vaccination/Date Given: Yes Hx Influenza Vaccination/Date Given: No Hx Pneumococcal Vaccination/Date Given: No Travel Risk - Emerging Infectious Disease Are you exhibiting symptoms associated with any current EIDs: No - Review of Systems Constitutional: No Symptoms Eyes: No Symptoms Ears, Nose, & Throat: No Symptoms Respiratory: No Symptoms Cardiac: No Symptoms Abdominal/Gastrointestinal: No Symptoms Genitourinary Symptoms: No Symptoms Musculoskeletal: Joint Pain (left great toe) Neurological: No Symptoms Psychological: No Symptoms Endocrine: No Symptoms Hematologic/Lymphatic: No Symptoms Immunological/Allergic: No Symptoms - Past Medical History Pertinent Past Medical History: Yes Neurological History: No Pertinent History ENT History: No Pertinent History Cardiac History: High Cholesterol, Hypertension Respiratory History: No Pertinent History Endocrine Medical History: No Pertinent History Musculoskeletal History: No Pertinent History GI Medical History: GERD History: No Pertinent History Psycho-Social History: No Pertinent History Male Reproductive Disorders: No Pertinent History - Past Surgical History Past Surgical History: No Neuro Surgical History: No Pertinent History Cardiac: No Pertinent History Respiratory: No Pertinent History Gastrointestinal: No Pertinent History Genitourinary: No Pertinent History Musculoskeletal: No Pertinent History Male Surgical History: No Pertinent History - Social History Smoking Status: Former smoker Exposure to second hand smoke: No Drug Use: none Patient Lives Alone: Yes - Social Determinants of Health Will the patient participate in the screening: Declined to provide - Physical Exam General Appearance: no apparent distress Eyes, Ears, Nose, Throat Exam: normal ENT inspection Neck Exam: normal inspection Cardiovascular/Respiratory Exam: chest non-tender Gastrointestinal/Abdominal Exam: non-tender Back Exam: normal inspection Hips Exam: bilateral: non-tender Legs Exam: bilateral leg: non-tender Knees Exam: bilateral knee: non-tender Ankle Exam: bilateral ankle: non-tender Foot Exam: left foot: pain (great toe medial side), soft tissue tenderness, swelling, bilateral foot: non-tender Neuro/Tendon Exam: normal sensation Mental Status Exam: alert, oriented x 3, cooperative - Course Nursing assessment & vital signs reviewed: Yes Ordered Tests: Active Orders 24 hr Category Date Time Status Uric Acid Stat Lab 06/07/24 18:33 Ordered - Progress Progress: improved, pain not gone completely Counseled pt/family regarding: lab results, diagnosis, need for follow-up - Departure Departure Disposition: Home Clinical Impression: Gout attack Qualifiers: Gout site: toe Gout etiology: idiopathic Laterality: left Qualified Code(s): M10.072 - Idiopathic gout, left ankle and foot Condition: Stable Critical Care Time: No Referrals: REINALDO AGUILAR NP [Primary Care Provider] - Follow up/PCP as directed Instructions: Gout ED, Low-purine diet, Uric acid blood test Additional Instructions: Discharge/Care Plan KIARRA KOHLI was seen on 06/07/24 in the Emergency Room. The patient was counseled regarding Diagnosis,Lab results, Imaging studies, need for follow up and when to return to the Emergency Room. Prescriptions given: Discharge Note I have spoken with the patient and/or caregivers. I have explained the patient's condition, diagnosis and treatment plan based on the information available to me at this time. I have answered the patient's and/or caregiver's questions and addressed any concerns. The patient and/or caregivers have as good understanding of the patient's diagnosis, condition and treatment plan as can be expected at this point. The vital signs have been stable. The patient's condition is stable and appropriate for discharge from the emergency department. The patient will pursue further outpatient evaluation with the primary care physician or other designated or consulting physician as outlined in the discharge instructions. The patient and/or caregivers are agreeable to this plan of care and follow-up instructions have been explained in detail. The patient and/or caregivers have received these instruction. The patient/and or caregivers are aware that any significant change in condition or worsening of symptoms should prompt an immediate return to this or the closest emergency department or call 911. KIARRA KOHLI was seen on 06/07/24 n the Emergency Room. At that time you were treated for an emergent condition, during your visit Laboratory, Radiology and/or other procedures may have been ordered. It is very important that you follow-up with your Primary Care Physician REINALDO AGUILAR within the next 24-48 hours to review your Emergency Room visit and the final results of testing that was ordered. Some test results such as Urine Cultures, Blood Cultures, and other cultures if ordered will not be finalized for 24-48 hours. If you do not have a Primary Care Provider please call the medical records department at [phone] ext [phone] to obtain a copy of your results or you may sign into our patient portal to obtain these results by visiting us @ [email or web address] and completing the following steps: 1. Click on the Patient Portal link 2. Click the Patient Self Enrollment Link to complete the enrollment form and entering your 3. Once the enrollment form is completed you will receive an email with a temporary ID and password at the email address you provided. 4. Next choose a user name and password. Your user name must be at least 4 characters long and your password must be at least 4 characters long. 5. Choose a security question from the list and provide your answer to the question. If you already have signed into the Health Portal you may access your Health Care Information 02/04 by the following steps: 1. Login to our website @ [email or web address] 2. Enter your original user name and password. FAQS The [facility] Health Portal is an online tool that contains your Lab Results, Radiology Reports, Visit History, Discharge Instructions and Health Summary Lab and Radiology Results will not be available for 72 hours on the portal. The Portal is a secure site, passwords are encryted and URLs are re-written so they cannot be copied and pasted. You and authorized family members are the only ones who can access your Portal. Also there is a timeout feature that protects your information if you leave the Portal page open. If you have technical difficulty please use the Contact Us link on the page this will allow you to submit any questions you have regarding the Portal or you may contact the Medical Record Department at [phone]. Prescriptions: Indomethacin 25 mg [Indocin 25 MG] 25 mg PO TID #30 cap
[2024-06-07 18:41] VITALS: BP 137/66; PULSE 66; RESP 17; TEMP 98; O2SAT 98
[2024-06-07] MEDS: TORAdol 30 mg Injection IM ONE (18:41)
== END 2024-06-07 19:16 | disposition home or self-care (01) ==
LOC: ED 18:21
DX: M10.072 Idiopathic gout, left ankle and foot (principal); M79.675 Pain in left toe(s); E78.5 Hyperlipidemia, unspecified; I10 Essential (primary) hypertension; Z79.85 Long-term (current) use of injectable non-insulin antidiabetic drugs; Z79.899 Other long term (current) drug therapy
CPT/HCPCS: 36415; 84550; 96372; 99283; J1885